=== PATIENT | female | born 1990 | race Caucasian/White ===

== ENCOUNTER 2017-01-25 02:53 | Emergency (ER) | payer OTHER ==
[~2017-01-25] VITALS: Ht 165.1 cm; Wt 70.0 kg
[2017-01-25 02:57] VITALS: Ht 165.1 cm; Wt 70.0 kg
[2017-01-25] MEDS ORDERED: HYDR-906 PO (05:14)
[2017-01-25] MEDS ORDERED: IBUP-1542 PO (05:14)
[2017-01-25] MEDS ORDERED: HYDROCODONE/APAP (5/325) TAB PO ONE (05:30)
--- NOTE | 2017-01-25 05:48 | ERD ---
ER Documentation Chief Complaint Date/Time DATE: 01/25/17 TIME: 05:47 Chief Complaint s/p fall on her left side.. C/O left knee and left ribs pain. HPI 26-year-old female presents here in emergency department for complaints of left rib pain after be being hit by left knee of daughter, daughter fell on her. Patient's complaint of pain sharp pain, 6/10 scale, as was upon taking a deep breath. Patient denies any shortness of breath. This happened 3 days ago. ROS All systems reviewed and are negative except as per history of present illness. Medications Home Meds Active Scripts Hydrocodone/Acetaminophen (Middle[place] 5-325 Tablet) 1 Each Tablet, 1 TAB PO Q6H for SEVERE PAIN LEVEL 7-10, #20 TAB Prov:LUPE MICHELE NP 01/25/17 Ibuprofen* (Motrin*) 600 Mg Tab, 600 MG PO Q6H Y for PAIN AND OR ELEVATED TEMP, #30 TAB Prov:LUPE MICHELE NP 01/25/17 Allergies Allergies: Coded Allergies: No Known Allergy (Unverified , 01/25/17) PMhx/Soc History of Surgery: Yes () Hx Alcohol Use: No Hx Substance Use: No Hx Tobacco Use: No Smoking Status: Never smoker FmHx Family History: No coronary disease, No diabetes, No other Physical Exam Vitals Vital Signs Date Time Temp Pulse Resp B/P Pulse Ox O2 Delivery O2 Flow Rate FiO2 01/25/17 02:57 97.2 74 20 102/58 98 Physical Exam GENERAL: The patient is well developed and appropriate for usual state of health, in no apparent distress. CHEST: Clear to auscultation bilaterally. There are no rales, wheezes or rhonchi. Tenderness on palpation in the left lower mid chest area. HEART: Regular rate and rhythm. No murmurs, clicks, rubs or gallops. No S3 or S4. ABDOMEN: Soft, nontender and nondistended. Good bowel sounds. No rebound or guarding. No gross peritonitis. No gross organomegaly or masses. No Dumont sign or McBurney point tenderness. BACK: No midline or flank tenderness. EXTREMITIES: Equal pulses bilaterally. There is no peripheral clubbing, cyanosis or edema. No focal swelling or erythema. Full range of motion. Grossly neurovascularly intact. NEURO: Alert and oriented. Cranial nerves 2-12 intact. Motor strength in all 4 extremities with 5/5 strength. Sensation grossly intact. Normal speech and gait. SKIN: There is no apparent rash or petechia. The skin is warm and dry. HEMATOLOGIC AND LYMPHATIC: There is no evidence of excessive bruising or lymphedema. No gross cervical, axillary, or inguinal lymphadenopathy. Results 24 hrs Current Medications Medications (Trade) Dose Ordered Sig/Wilner Route PRN Reason Start Time Stop Time Status Last Admin Dose Admin Acetaminophen/ Hydrocodone Bitart ([place] (5/325)) 1 tab ONCE ONCE PO 01/25/17 05:30 01/25/17 05:31 DC 01/25/17 05:11 Patient was given medication for pain here in emergency department, after treatment, patient verbalized feeling much better. Patient's pain is improved. Procedures/MDM Medical decision making: Patient symptoms of pain most likely is consistent with a rib contusion, can be also from minor fracture of the ribs, this time, treatment will be the same. No symptoms of pneumothorax, respiratory or cardiac emergencies, no symptoms of respiratory distress. Lungs were clear. Oxygenation is normal. Patient was treated with ibuprofen and [place], is advised to follow-up with primary care doctor in 2-3 days for reevaluation of symptoms. Patient was advised to return to emergency department for any worsening symptoms. Disposition: Home. Stable. Departure Diagnosis: Primary Impression: Rib pain on left side Condition: Stable Patient Instructions: Rib: Contusion Vs Minor Fracture LUPE MICHELE NP Jan 25, 2017 05:48
== END 2017-01-25 05:37 | disposition home or self-care (01) ==
LOC: FTE 02:53
DX: R07.81 Pleurodynia (principal)
CPT/HCPCS: Z7502; Z7610; 99283

== ENCOUNTER 2018-09-21 15:13 | Emergency (ER) | payer OTHER ==
[~2018-09-21] VITALS: Ht 162.6 cm; Wt 68.0 kg
[~2018-09-21 15:13] MED LIST: HYDR-4011 PO; IBUP-1542 PO
[2018-09-21 15:49] VITALS: BP 117/56; PULSE 86; RESP 16; Ht 162.6 cm; Wt 68.0 kg
[2018-09-21] MEDS ORDERED: IBUP-1542 PO (16:56)
[2018-09-21] MEDS ORDERED: CEPH-443 PO (16:56)
--- NOTE | 2018-09-21 17:03 | ERD ---
ER Documentation Chief Complaint Chief Complaint FOOT PAIN AND SWELLING S/P FOOT BEING CUT WITH GLASS YESTERDAY HPI 28-year-old female patient with no significant past medical history presents the ED complaining of having left foot swelling after being cut by a broken glass cup. States that last accidentally dropped on her foot and broke. States that she is not concerned about any retained foreign bodies or fractures. Reports that her cut got more swollen and now is more red. Denies any loss of sensation, loss of range of motion, fever, chills. ROS All systems reviewed and are negative except as per history of present illness. Medications Home Meds Active Scripts Ibuprofen* (Motrin*) 600 Mg Tab, 600 MG PO Q6, #30 TAB Prov:MARCIE LOWRY PA-C 09/21/18 Cephalexin* (Keflex*) 500 Mg Capsule, 500 MG PO QID for 7 Days, CAP Prov:MARCIE LOWRY PA-C 09/21/18 Hydrocodone/Acetaminophen ([place] 5-325 Tablet) 1 Each Tablet, 1 TAB PO Q6H for SEVERE PAIN LEVEL 7-10, #20 TAB Prov:LUPE MICHELE NP 01/25/17 Ibuprofen* (Motrin*) 600 Mg Tab, 600 MG PO Q6H PRN for PAIN AND OR ELEVATED TE MP, #30 TAB Prov:LUPE MICHELE NP 01/25/17 Allergies Allergies: Coded Allergies: No Known Allergy (Unverified , 01/25/17) PMhx/Soc History of Surgery: Yes () Hx Alcohol Use: No Hx Substance Use: No Hx Tobacco Use: No FmHx Family History: No diabetes, No coronary disease Physical Exam Vitals Vital Signs Date Temp Pulse Resp B/P (MAP) Pulse Ox O2 O2 Flow FiO2 Time Delivery Rate 09/21/18 97.8 86 16 117/56 99 15:49 (76) Physical Exam Const: [id number], well-nourished. In no acute distress. Head: Atraumatic, normocephalic Eyes: Normal Conjunctiva without injection ENT: Normal external ear, nose and mouth. Neck: Full range of motion. No meningismus. Resp: Clear to auscultation bilaterally. No wheezing, rhonchi, rales, or crackles. No accessory muscle use. No retractions. Cardio: Regular rate and rhythm, no murmurs Skin: No petechiae or rashes Back: No midline tenderness. No CVA tenderness. Ext: No cyanosis, or edema. Cap refill less than 2 seconds. Distal pulses intact bilaterally. Edematous left lateral dorsal foot with 1 cm punctate wound laceration with scabs noted with surrounding erythema. No tenderness palpation of the fifth metatarsal and there are bony prominences. No of any tendons or foreign bodies. Range of motion with flexion, extension of the IP, metatarsal joints. Patient was able to plantar flex and dorsiflex. Neur: Awake and alert. Normal gait and coordination. Muscle strength 5/5. Sensation intact bilaterally. Psych: Normal Mood and Affect Procedures/MDM 28-year-old female patient with no significant past medical history presents ED complaining of left foot pain and swelling due to a glass cup injury. Patient is afebrile and nontoxic-appearing. Patient reports that she does not want a foot x-ray and has low concerns for any fractures. Patient only wants antibiotics for the infection. Patient wound is irrigated, clean dressing was applied. No visualization of any glass or foreign bodies. No tenderness to palpation of the bony prominences of the left foot. No laceration that needs any suture repair. Patient will be given crutches to help with ambulation. Patient will be treated for cellulitis. Splint Assessment: Neurovascularly intact pre and post splint placement with good fit. Patient's extremity symptoms have stabilized while they have been evaluated in the department and are appropriate for outpatient follow up. No evidence of fractures, dislocations, compartment syndrome, neurologic injury, vascular injury, open joint, open fracture, tendon laceration, septic arthritis, osteomyelitis, DVT, foreign body, or other emergent conditions. Wound check in 2 days. Diagnosis: Injury of Foot Discharge medications: Ibuprofen, Keflex Follow up with primary care physician in 1-2 days. Instructed patient to return to the ED sooner for any worsening symptoms. Patient's questions were answered. Patient is hemodynamically stable. Patient understood and agreed with discharge plan. Patient discharged stable. Disclaimer: Inadvertent spelling and grammatical errors are likely due to EHR/dictation software use and do not reflect on the overall quality of patient care. Also, please note that the electronic time recorded on this note does not necessarily reflect the actual time of the patient encounter. Departure Diagnosis: Primary Impression: Injury of foot Encounter type: initial encounter Laterality: left Qualified Codes: S99.922A - Unspecified injury of left foot, initial encounter Condition: Stable Patient Instructions: Cellulitis, Contusion, Foot [facility]errals[facility] Usted se asencio hecho un examen mdico de control que le indica que no est en bao condicin que requiera tratamiento urgente en el Departamento de Emergencia. Un estudio ms profundo y el tratamiento de easton condicin pueden esperar sin ningn riesgo hasta que usted sea atendida/o en el consultorio de easton mdico o bao clnica. Es responsabilidad suya arreglar bao beatriz para el seguimiento del johan. MANEJO DE CONDICIONES NO URGENTES EN EL FUTURO 1) Si usted tiene un mdico de atencin primaria: Usted debera llamar a easton mdico de atencin primaria antes de venir al departamento de emergencia. Despus de las horas de consultorio, easton doctor o easton asociado/a est disponible por telfono. El mdico o enfermero de stefan en el servicio telefnico puede asesorarle por guanakito medio para atender el problema, o johan contrario se puede programar bao beatriz. 2) Si usted no tiene un mdico de atencin primaria: Llame al mdico o clnica de referencia que aparece abajo virgen las horas de consultorio para hacer bao beatriz para que le vean. CLINICAS: [facility] [phone] [facility] [phone] [address] [facility] [phone] [address] [facility] [phone] [address] [facility] [phone] [address] [facility]. [phone] [address] [facility]. [facility] () [place] se asencio hecho un examen mdico de control que le indica que no est en bao condicin que requiera tratamiento urgente en el Departamento de Emergencia. Un estudio ms profundo y el tratamiento de easton condicin pueden esperar sin ningn riesgo hasta que usted sea atendida/o en el consultorio de easton mdico o bao clnica. Es responsabilidad suya arreglar bao beatriz para el seguimiento del johan. MANEJO DE CONDICIONES NO URGENTES EN EL FUTURO 1) Si usted tiene un mdico de atencin primaria: Usted debera llamar a easton mdico de atencin primaria antes de venir al departamento de emergencia. Despus de las horas de consultorio, easton doctor o easton asociado/a est disponible por telfono. El mdico o enfermero de stefan en el servicio telefnico puede asesorarle por guanakito medio para atender el problema, o johan contrario se puede programar bao beatriz. 2) Si usted no tiene un mdico de atencin primaria: Llame al mdico o condado institucions de referencia que aparece abajo virgen las horas de consultorio para hacer bao beatriz para que le vean. SI USTED NO PUEDE PAGAR PARA AMBROCIO UN MEDICO puede ir a: [facility] [address] [place] [address] [facility] [address] [place] [address] [facility] [address] [place] [address] [facility] [address] [place] [address] [facility] Additional Instructions: Call your primary care doctor TOMORROW for an appointment during the next 2-3 days.See the doctor sooner or return here if your condition worsens before your appointment time. Follow up in 2 days in your clinic for wound check. MARCIE LOWRY PA-C September 21, 2018 17:03
== END 2018-09-21 17:21 | disposition home or self-care (01) ==
LOC: FTE 15:13
DX: S91.312A Laceration without foreign body, left foot, initial encounter (principal); W20.8XXA Other cause of strike by thrown, projected or falling object, initial encounter; Y92.9 Unspecified place or not applicable
CPT/HCPCS: 99283